=== PATIENT | male | born 2000 | race Asian ===

== ENCOUNTER 2021-06-27 22:39 | Emergency (ER) | payer OTHER, SELFPAY ==
[2021-06-27 22:41] VITALS: BP 135/63; PULSE 78; RESP 18; TEMP 35.8; O2SAT 98; BMI 25.7
--- NOTE | 2021-06-27 22:50 | ED.VIS.LOWEX ---
HPI History of Present Illness Chief Complaint: Lower Extremity Injury Detail of Chief Complaint: Injury to left ankle playing basketball Informant: patient and spouse/S.O. Occured/Mechanism Comment: Plantar inversion mechanism of injury Onset/Context/Timing Onset: Hours (0) Context: Sudden Onset Timing: Continuous Quality of Pain: Dull and Aching Location: Lateral side of left ankle Current Severity: Mild Maximum Severity: Severe Worsened by: Attempt to weight-bear Relieved by: Nothing Associated Symptoms Associated Symptoms: Positive for Loss of Funtion; Negative for Parasthesia and Weakness Narrative Narrative: Patient is a 21-year-old male who presents with injury to his left ankle. This occurred while playing basketball. He rolled it. He complains of pain over the lateral malleolus. He denies paresthesia, anesthesia motors. He denies prior injury. He also points to the Achilles tendon where he has discomfort. Tetanus Immunization: 5-10 years Prior similar symptoms: No Recent Illness/Hospitalization: No PFSH PFSH Medical History Smoker Medical History no medical history no medical history Home Medications NK 06/27/21 [History Last Taken Unknown] naproxen 500 mg PO BID #14 tab 06/27/21 [Rx Last Taken Unknown] Allergy/AdvReac Type Severity Reaction Status Date / Time No Known Allergies Allergy Verified 06/27/21 22:44 Surgical History no surgical history no surgical history Social History (Updated 06/27/21 @ 22:[address] Rick Nichols MD) Smoking Status: Never smoker alcohol intake: never ROS ROS ED Musculoskeletal Musculoskeletal: Reports other Details: Left pain ankle ; Denies arthralgias, back pain, myalgias or neck pain Integumentary Denies Abrasions or rash Neurologic Neurologic: Denies paresthesias or weakness Hematologic/Lymphatic Hematologic/Lymphatic: Denies easy bleeding or easy bruising EXAM Physical Exam Const Vital Signs: 06/27/21 22:41 Temperature 96.5 F L Temperature Source Temporal Pulse Rate 78 Respiratory Rate 18 Blood Pressure 135/63 H Blood Pressure Mean 87 Pulse Ox 98 Oxygen Delivery Method Room Air Positive well nourished and well developed General Appearance ED: well developed and NAD HEENT normocephalic and atraumatic Eyes PERRL Eyes Narrative: Extract muscles intact Neck full ROM Resp normal respiratory effort Cardio regular rate and regular rhythm Extremity Left Lower Extremity: ankle joint inspection (There is swelling over the lateral malleolus), palpation (There is pain posterior lateral malleolus. There is swelling noted with palpation of the anterior talofibular ligament and the calcaneofibular ligament. There is minimal discomfort over the Achilles tendon. The Achilles tendon is functionally intact.), ROM (He is able to plantar and dorsiflex.), neurovascular exam (DP and PT pulse are palpable.) and other (There is no pain no patient over the medial malleolus. There is no laxity with drawer testing. There is no pain the patient of the base of the fifth metatarsal.) Neuro oriented x3 and CN's II-XII intact bilaterally Sensorium / Orientation: alert Psych mental status grossly normal Skin no wounds Lesions: no lesions Rashes: no rashes MDM MDM MDM Narrative Medical decision making narrative: Per the audible rule imaging is required. Three-view x-ray of the left ankle was ordered. He was medicated with NSAID and opiate analgesia. Radiography X-Ray: Read by ED Physician (Three-view x-rays of the left ankle reveal soft tissue swelling over the lateral malleolus. There is no evidence of fracture, subluxation or dislocation.) Discharge Plan Triage Chief Complaint: Lower Extremity Injury ED Provider: Rick Nichols Dx/Rx/DC Orders Clinical Impression: Inversion sprain of left ankle Instructions: ED Ankle Sprain (Adult) Prescriptions: New naproxen 500 MG tablet 500 mg PO BID Qty: 14 RF: 0 No Action NK RF: 0 Primary Care Provider: NOT,DEFINED Referrals: Josie Morrison [NON-STAFF] - 1 Week NOT,DEFINED [Primary Care Provider] - Activity Restrictions/Additional Instructions: Remove air splint 6 times a day to draw the alphabet with your foot Apply ice 8-10 times a day for the next 3 to 5 days You may remove the air splint when you go to bed. Disposition Disposition: Home, Self Care
--- NOTE | 2021-06-27 23:00 | RAD_ITS ---
INDICATION: Injury/Pain EXAMINATION/TECHNIQUE: X-RAY - LEFT XR Ankle Min 3 Views 3 VIEWS COMPARISON: None. FINDINGS: SOFT TISSUES: There is soft tissue swelling lateral and anterior ankle. No joint effusion. No radiopaque foreign body. BONES/JOINTS: No acute fracture or malalignment. Preservation of the joint space and no degenerative bony proliferative changes. No sclerotic or destructive changes observed. RAD/Ankle min 3 Views IMPRESSION: Soft tissue swelling without fracture or malalignment. Electronically Signed: Eddie Barney DO at 23:59 EST ,
[2021-06-27] MEDS: Naproxen 500 MG Tablet PO (23:46)
[2021-06-27] MEDS: HYDROcodone Bitartrate/Apap 5/325 Tablet PO (23:46)
[2021-06-27 23:54] VITALS: PULSE 82; RESP 15; O2SAT 98
== END 2021-06-27 23:55 | disposition home or self-care (01) ==
LOC: ED 23:21
PROVIDERS: Emergency Provider Emergency Medicine; Visit Provider Emergency Medicine
DX: S93.402A Sprain of unspecified ligament of left ankle, initial encounter (principal); X50.1XXA Overexertion from prolonged static or awkward postures, initial encounter; Y93.67 Activity, basketball; Y92.9 Unspecified place or not applicable
CPT/HCPCS: 73610; 99282

== ENCOUNTER 2021-08-15 19:24 | Emergency (ER) | payer OTHER, SELFPAY ==
[2021-08-15 19:24] VITALS: BP 120/75; PULSE 70; RESP 15; TEMP 35.6; O2SAT 95; BMI 26.4
--- NOTE | 2021-08-15 19:53 | EDS_ITS ---
HPI History of Present Illness Chief Complaint: Laceration Detail of Chief Complaint: Laceration to right upper eyelid Informant: patient Narrative Narrative: Patient presents to the emergency department after sustaining a laceration to his right upper eyelid. Patient states he was playing basketball and caught an elbow to the side of the head. No loss of consciousness. He is unsure of his last tetanus shot. Denies visual changes. PFSH PFS Medical History Smoker Home Medications NK 06/27/21 [History Last Taken Unknown] Allergy/AdvReac Type Severity Reaction Status Date / Time No Known Allergies Allergy Verified 08/15/21 19:28 Social History (Updated 06/27/21 @ 22:[address] Rick Nichols MD) Smoking Status: Current every day smoker tobacco type: cigarettes alcohol intake: never ROS ROS ED Constitutional Constitutional ED: Reports systems reviewed and no addt'l complaints, except as documented; Denies body ache(s), change in weight or chills Eyes Eyes: Denies acute decrease in peripheral vision, change in vision, double vision or loss of vision ENT ENT ED: Reports none and other Details: Laceration right upper eyelid ; Denies ear pain, lip swelling, loss taste/smell, neck pain, otalgia or sore throat Cardiovascular Cardiovascular: Reports none; Denies abdominal pain, chest pain with activity, leg edema, lightheadedness, palpitations, rapid heart rate or syncope Respiratory/Chest Respiratory/Chest: Reports none; Denies change in mental status, dry cough, dyspnea, hemoptysis, shortness of breath at rest or shortness of breath with exertion Gastrointestinal Gastrointestinal: Reports none; Denies abdominal pain, change in stool character, diarrhea, hematemesis, hematochezia, melena, rectal bleeding or vomiting Genitourinary Genitourinary ED: Reports none; Denies abdominal discomfort, anuria, dysuria, genital pain or polyuria Musculoskeletal Musculoskeletal: Reports none; Denies arthralgias, back pain, difficulty walking, extremity pain, muscle weakness or myalgias Integumentary Reports none; Denies abscess or rash Neurologic Neurologic: Reports none; Denies abnormal gait, confusion, focal weakness, frequent falls, headache(s), loss of vision, numbness, paresthesias, radicular pain, vertigo or weakness Psychiatric Psychiatric: Reports systems reviewed and no addt'l complaints, except as documented and none; Denies behavioral changes, confusion, difficulty concentrating, hallucinations, suicidal ideation, tactile hallucinations or visual hallucinations Endocrine Endocrinology: Denies none, cold intolerance, excessive sweating, fatigue or hea t intolerance Hematologic/Lymphatic Hematologic/Lymphatic: Reports none; Denies anemia, easy bleeding or easy bruising Allergic/Immunologic Allergic/Immunologic ED: Denies as per HPI, none, lip swelling, mouth swelling, throat swelling, tongue swelling or hives EXAM Physical Exam Const Vital Signs: 08/15/21 19:24 Temperature 96.0 F L Temperature Source Temporal Pulse Rate 70 Respiratory Rate 15 Blood Pressure 120/75 Blood Pressure Mean 90 Pulse Ox 95 Oxygen Delivery Method Room Air Positive well nourished and well developed General Appearance ED: well developed and NAD HEENT Reports TM's clear and moist mucous membranes HEENT Narrative: Patient has a 2.5 cm laceration that is horizontal in orientation to the lateral aspect of the right upper eyelid. No bony tenderness on palpation of the orbit. normocephalic; Negative for trauma or tenderness Tympanic Membrane ED: Yes TM's clear Eyes PERRL and EOMs intact bilaterally General Eye ED: Negative for pale conjunctiva or scleral icterus Neck no lymphadenopathy, supple and no JVD General: Negative for tenderness Chest Wall inspection of chest normal and palpation of chest normal Chest: Negative for tenderness Resp normal respiratory effort and clear to auscultation bilaterally Effort and Inspection: Negative for respiratory distress or pain with movement Auscultation: Negative for rhonchi, wheezes or diminished lung sounds Cardio regular rate, regular rhythm, S1 normal heart sound, S2 normal heart sound and no murmurs Peripheral Pulses: pulses 2+ throughout GI normal to inspection, nondistended, normoactive bowel sounds, soft to palpation, non-tender, non-distended and no masses Back/Spine no CVA tenderness and no thoracic nor lumbar tenderness Extremity normal to inspection General Extremety ED: Negative for edema General Extremity: Negative for edema Neuro oriented x3, CN's II-XII intact bilaterally, no sensory deficits noted and gait normal Sensorium / Orientation: awake, alert, oriented to person, oriented to place and oriented to time Motor Exam: strength 5/5 throughout and strength abnormal Psych mental status grossly normal Skin no rashes or lesions noted and no wounds PROC Procedures Lacerations Right upper eyelid laceration: Length: 0.98 in Depth: Sub Q Shape: Linear Laceration repair: Lidocaine and Local Irrigated (ml): 50 Number of Sutures/Sergio: 3 Suture Information: Simple and 6-0 MDM MDM MDM Narrative Medical decision making narrative: Patient had laceration repair of his right upper eyelid. He is advised to follow-up with primary care physician in 5 days for suture removal and he began getting he is to return to the emergency department for suture removal. Patient to return if increasing pain, redness, swelling, purulent drainage, or condition should worsen anyway. Discharge Plan Triage Chief Complaint: Laceration ED Provider: Elias Ambrosio Dx/Rx/DC Orders Clinical Impression: Eyelid laceration Instructions: ED Laceration: All Closures Prescriptions: No Action NK RF: 0 Primary Care Provider: Care Physician,No Primary Referrals: Will Parks MD [STAFF PHYSICIAN] - 5 Days for suture removal Care Physician,No Primary [Primary Care Provider] - Disposition Disposition: Home, Self Care
[2021-08-15] MEDS: Lidocaine 1% (20 ml mdv) 20 ML Vial 4 ML INFILT (19:54)
[2021-08-15] MEDS: Diphth,Pertuss(Acell),Tet Vac 0.5 ML Vial IM (20:16)
[2021-08-15 20:22] VITALS: BP 110/71; PULSE 68; RESP 18; O2SAT 96
== END 2021-08-15 20:38 | disposition home or self-care (01) ==
PROVIDERS: Emergency Provider Emergency Medicine; Visit Provider Emergency Medicine
DX: S01.111A Laceration without foreign body of right eyelid and periocular area, initial encounter (principal); W51.XXXA Accidental striking against or bumped into by another person, initial encounter; Y93.67 Activity, basketball; F17.210 Nicotine dependence, cigarettes, uncomplicated; Z23 Encounter for immunization
CPT/HCPCS: 12011; 90471; 90715; 99283

== ENCOUNTER 2023-01-12 18:28 | Emergency (ER) | payer OTHER, SELFPAY ==
[2023-01-12 18:29] VITALS: BP 123/77; PULSE 59; RESP 16; TEMP 36.6; O2SAT 98
[2023-01-12 18:37] VITALS: BMI 27.1
--- NOTE | 2023-01-12 18:50 | EDS_ITS ---
<Statement entered by Will Alvarez MD - 01/12/23 19:10> I have personally performed a face to face assessment of the patient and have reviewed the TEMO Note. HPI History of Present Illness Chief Complaint: Laceration Narrative Narrative: Patient is a 22-year-old male who was playing basketball, he received an elbow to the left I sustaining a left eye laceration. Patient had no vision changes, patient has no injury to the actual eyeball. Patient's upper and lower lid are intact. Patient has a small 1.5 cm laceration just lateral to the left eye. Patient denies any LOC. [facility] Medical History Smoker Home Medications NK 06/27/21 [History Last Taken Unknown] Allergy/AdvReac Type Severity Reaction Status Date / Time No Known Allergies Allergy Verified 01/12/23 18:28 Social History (Updated 06/27/21 @ 22:[address] Rick Nichols MD) Smoking Status: Current every day smoker tobacco type: cigarettes alcohol intake: never ROS ROS ED ROS Narrative Constitutional: Negative for fever, chills, weight loss, weakness Eyes: Negative for vision loss, vision change, double vision ENT: Negative for any sore throat, ear pain, congestion Cardiovascular: Negative for any chest pain, tightness, palpitations Respiratory: Negative for any cough, sputum production, hemoptysis, dyspnea, dyspnea on exertion, orthopnea Gastrointestinal: Negative for any abdominal pain, nausea, vomiting, diarrhea, constipation, blood in stool, blood in vomit : Negative for any urinary frequency, dysuria, retention, blood in urine Muscle skeletal: Negative for any muscle joint pain, stiffness, myalgias, arthralgias, neck pain, back pain Neurological: Negative for any headache, syncope, numbness or tingling, dizziness Skin: Negative for any rashes, lumps, itching, abrasions,. Positive for laceration of left lateral eye Psychiatric: Negative for any depression, anxiety, stress, suicidal ideation, homicidal ideation Hematologic: Negative for any easy bruising, excessive bruising, easy bleeding Allergies: Negative for any eczema, hives, rash EXAM Physical Exam Narrative Exam Narrative: Vital signs reviewed. HEET: Head normocephalic atraumatic, TMs clear bilaterally. Posterior pharynx is clear, moist mucous membranes. Nares clear bilaterally. Pupils are equal round reactive to light. Patient does exhibit a 1.5 cm horizontal laceration just lateral to the left eye. There is some bruising, ecchymosis. Patient has no pain to the maxillary or frontal sinuses. Patient has no deformity, no crepitus Neck: Supple with no lymphadenopathy or tenderness. No signs of meningismus, negative jolt sign. Cardiac: Regular rate and rhythm no murmurs gallops or rubs, equal peripheral pulses bilaterally. Respiratory: Lungs clear to auscultation bilaterally. No chest tenderness. Abdomen: Soft, nontender, nondistended. No abdominal bruit or pulsatile masses. No hepatosplenomegaly Extremities: No peripheral edema, no signs of gross trauma or deformity. Active full range of motion of all extremities. Neuro: Cranial nerves II through XII intact, no focal neurological deficits. Skin: Clean dry and intact with no rash, purpura, petechiae, vesicles or pustules. Backs/flank: No CVA tenderness, no midline spinal tenderness, no deformity. Psych: Normal mood and affect. No SI, HI or acute psychosis. Const Vital Signs: 01/12/23 18:29 Temperature 97.8 F Temperature Source Temporal Pulse Rate 59 L Respiratory Rate 16 Blood Pressure 123/77 H Blood Pressure Mean 92 Pulse Ox 98 Oxygen Delivery Method Room Air [facility] Treatment and Re-Evaluation Narrative: Patient appears generally well, patient appears nontoxic, vital signs are stable. Presenting to the emergency department with complaints of a left eye laceration. At this time, according to the [place] [facility] head rules, patient does not meet any requirements for a CAT scan of the brain. I am not concerned about any facial fractures as he has no pain on palpation. Patient does have a 1.5 cm laceration to the lateral eye. I anesthetized the area, irrigated copiously with 100 cc of normal saline. I was able to put 3 simple noted sutures to the left eye, edges approximate nicely, patient tolerated well. At this time, patient be stable for discharge. You had these removed in 5 to 7 days. Patient given wound care instructions. Stable for discharge. Discharge Plan Triage Chief Complaint: Laceration ED Midlevel Provider: Will Monroy ED Provider: Will Alvarez Dx/Rx/DC Orders Clinical Impression: Face lacerations, Head injury Instructions: ED Laceration: All Closures Prescriptions: No Action NK Primary Care Provider: Care Physician,No Primary Referrals: Care Physician,No Primary [Primary Care Provider] - Activity Restrictions/Additional Instructions: Please have your sutures removed in 5 to 7 days. Make sure that you ice. Disposition Disposition: Home, Self Care
== END 2023-01-12 19:01 | disposition home or self-care (01) ==
PROVIDERS: Emergency Provider Emergency Medicine; Visit Provider Emergency Medicine
DX: S01.81XA Laceration without foreign body of other part of head, initial encounter (principal); Y93.67 Activity, basketball; S09.8XXA Other specified injuries of head, initial encounter; W50.0XXA Accidental hit or strike by another person, initial encounter; F17.210 Nicotine dependence, cigarettes, uncomplicated
CPT/HCPCS: 12011; 99283